=== PATIENT | male | born 1970 | race Hispanic/Latino ===

== ENCOUNTER 2017-09-29 09:23 | Emergency (ER) | payer OTHER ==
--- NOTE | 2017-09-29 10:37 | RAD REPORT ---
EXAM DESCRIPTION: RAD - C Spine Ap/Lat - 09/29/2017 10:17 am CLINICAL HISTORY: Neck pain status post injury FINDINGS: The alignment of the cervical spine is satisfactory. No fracture or dislocation is seen involving the cervical spine. . On the lateral view there is an oblique lucency overlying the body of the mandible. I suspect this re presents artifact. A fracture can also have this appearance and should be correlated clinically.
--- NOTE | 2017-09-29 10:39 | RAD REPORT ---
EXAM DESCRIPTION: RAD - Pelvis - 09/29/2017 10:17 am CLINICAL HISTORY: Pelvic pain status post injury FINDINGS: No fracture or dislocation is seen.
--- NOTE | 2017-09-29 10:42 | RAD REPORT ---
EXAM DESCRIPTION: RAD - Femur Right - 09/29/2017 10:17 am CLINICAL HISTORY: Right leg pain status post fall FINDINGS: No fracture is seen.
[2017-09-29] MEDS ORDERED: HYDROCODONE/APAP 10/325 TAB ONE (10:44)
--- NOTE | 2017-09-29 10:44 | RAD REPORT ---
EXAM DESCRIPTION: RAD - Lumbar Spine 3 Views - 09/29/2017 10:17 am CLINICAL HISTORY: Back pain FINDINGS: The alignment of the lumbar spine is satisfactory. No fracture or dislocation is seen. Mild to moderate spondylosis involves the mid and distal lumbar spine
--- NOTE | 2017-09-29 12:40 | RAD REPORT ---
EXAM DESCRIPTION: RAD - Mandible <4 Views - 09/29/2017 11:45 am CLINICAL HISTORY: Right mandibular pain status post fall FINDINGS: No fracture or dislocation is seen
--- NOTE | 2017-09-29 12:46 | ER ---
Nurse's Notes [facility] Name: Darío Pavon Age: 47 yrs Sex: Male : 1970 Arrival Date: 09/29/2017 Time: 09:26 Bed 7 Private MD: Diagnosis: Contusion of right hip;Fall on sidewalk Presentation: 09/29 09:26 Presenting complaint: EMS states: Right hip pain after mechanical fall from standing. hb Denies LOC. Care prior to arrival: None. Mechanism of Injury: Fall. Trauma event details: Injury occurred in the [facility], Injury occurred: at home. Injury occurred: September 29, 2017. 09:26 Method Of Arrival: EMS: [facility] 09:26 Acuity: RADHA 4 hb Trauma Activation: Not Applicable Physician: ED Physician; Name: ; Notified At: ; Arrived At: Physician: General Surgeon; Name: ; Notified At: ; Arrived At: Physician: Radiology; Name: ; Notified At: ; Arrived At: Physician: Respiratory; Name: ; Notified At: ; Arrived At: Physician: Lab; Name: ; Notified At: ; Arrived At: Historical: - Allergies: 10:18 No Known Allergies; hb - PSHx: 10:18 Back surgery; L knee; hb - Immunization history: Last tetanus immunization: - up to date. - Family history:: not pertinent. - Social history:: Smoking status: Patient/guardian denies using tobacco. - Hospitalizations: : No recent hospitalization is reported. Screenin:27 Abuse screen: Denies threats or abuse. Denies injuries from another. Tuberculosis hb screening: No symptoms or risk factors identified. 09:30 Nutritional screening: No deficits noted. Fall Risk None identified. hb Primary Survey: 09:28 A: Airway: patent, No supplemental oxygen in use on arrival. Breathing/Chest: hb Respiratory pattern: regular, Respiratory effort: spontaneous, unlabored, Breath sounds: clear, bilaterally. Chest inspection: symmetrical rise and fall of the chest. Circulation: Pulses: palpable . Skin color: pink, Skin temperature: warm, dry. Disability Alert. 10:27 Reassessment Airway Airway Patent Breathing/Chest Respiratory pattern Regular hb Respiratory effort Spontaneous Unlabored Chest inspection Symmetrical Circulation Color Golinda Temperature Warm Dry Disability Alert. 11:15 Reassessment Airway Airway Patent Breathing/Chest Respiratory pattern Regular hb Respiratory effort Spontaneous Unlabored Chest inspection Symmetrical Circulation Color Golinda Temperature Warm Dry Disability Alert. 12:10 Reassessment Airway Airway Patent Breathing/Chest Respiratory pattern Regular hb Respiratory effort Spontaneous Unlabored Chest inspection Symmetrical Circulation Color Golinda Temperature Warm Dry Disability Alert. 12:56 A: Airway: patent. Breathing/Chest: Respiratory pattern: regular, Respiratory effort: la1 spontaneous, unlabored. Disability Alert. Secondary Survey: 09:28 HEENT: No deficits noted. Gastrointestinal: No deficits noted. : No signs and/or hb symptoms were reported regarding the genitourinary system. Musculoskeletal: Circulation, motion, and sensation intact. Reports pain in right hip. Assessment: 09:32 General: Appears in no apparent distress. uncomfortable, Behavior is calm, cooperative. hb Pain: Pain currently is 6 out of 10 on a pain scale. Neuro: Level of Consciousness is awake, alert, obeys commands, Oriented to person, place, time, situation. EENT: No signs and/or symptoms were reported regarding the EENT system. Cardiovascular: Capillary refill < 3 seconds Patient's skin is warm and dry. Respiratory: Airway is patent Trachea midline Respiratory effort is even, unlabored, Respiratory pattern is regular, symmetrical, Breath sounds are clear bilaterally. GI: No signs and/or symptoms were reported involving the gastrointestinal system. : No signs and/or symptoms were reported regarding the genitourinary system. Derm: No signs and/or symptoms reported regarding the dermatologic system. Skin is intact, is healthy with good turgor. Musculoskeletal: Circulation, motion, and sensation intact. Reports pain in right hip. 10:27 Reassessment: Pt c/o headache 12/31. Dr. Winn notified, Clyde administered as ordered. Awaiting radiology results at this time. VSS. NAD. at bedside. 11:15 Reassessment: Patient appears in no apparent distress at this time. No changes from hb previously documented assessment. Patient and/or family updated on plan of care and expected duration. Pain level reassessed. Patient is alert, oriented x 3, equal unlabored respirations, skin warm/dry/pink. 12:10 Reassessment: Patient appears in no apparent distress at this time. No changes from hb previously documented assessment. Patient and/or family updated on plan of care and expected duration. Pain level reassessed. Patient is alert, oriented x 3, equal unlabored respirations, skin warm/dry/pink. Vital Signs: 09:27 BP 153 / 83; Pulse 82; Resp 16; Temp 98; Pulse Ox 100% on R/A; Pain 6/10; hb 10:28 BP 119 / 88; Pulse 80; Resp 16; Pulse Ox 100% on R/A; Pain 7/10; hb 11:00 BP 115 / 81; Pulse 71; Resp 15; Pulse Ox 100% on R/A; Pain 4/10; hb 12:00 BP 121 / 78; Pulse 74; Resp 17; Pulse Ox 100% on R/A; Pain 4/10; hb 13:02 BP 121 / 81; Pulse 76; Resp 16; Pulse Ox 100% on R/A; la1 Tahira Coma Score: 10:27 Eye Response: spontaneous(4). Verbal Response: oriented(5). Motor Response: obeys hb commands(6). Total: 15. Trauma Score (Adult): 09:27 Eye Response: spontaneous(1); Verbal Response: oriented(1); Motor Response: obeys hb commands(2); Systolic BP: > 89 mm Hg(4); Respiratory Rate: 10 to 29 per min(4); [place] Score: 15; Trauma Score: 12 10:27 Eye Response: spontaneous(1); Verbal Response: oriented(1); Motor Response: obeys hb commands(2); Systolic BP: > 89 mm Hg(4); Respiratory Rate: 10 to 29 per min(4); Tahira Score: 15; Trauma Score: 12 11:00 Eye Response: spontaneous(1); Verbal Response: oriented(1); Motor Response: obeys hb commands(2); Systolic BP: > 89 mm Hg(4); Respiratory Rate: 10 to 29 per min(4); [place] Score: 15; Trauma Score: 12 12:00 Eye Response: spontaneous(1); Verbal Response: oriented(1); Motor Response: obeys hb commands(2); Systolic BP: > 89 mm Hg(4); Respiratory Rate: 10 to 29 per min(4); Tahira Score: 15; Trauma Score: 12 13:02 Eye Response: spontaneous(1); Verbal Response: oriented(1); Motor Response: obeys la1 commands(2); Systolic BP: > 89 mm Hg(4); Respiratory Rate: 10 to 29 per min(4); [place] Score: 15; Trauma Score: 12 ED Course: 09:10 Patient has correct armband on for positive identification. Bed in low position. Call hb light in reach. Side rails up X 1. 09:26 Patient arrived in ED. hb 09:26 Santo Winn MD is Attending Physician. rn 09:27 Triage completed. hb 09:35 Patient maintains SpO2 saturation greater than 95% on room air. Thermoregulation: warm hb blanket given to patient. 09:40 Arm band placed on right wrist. hb 09:50 Yazmin Fine, RN is Primary Nurse. hb 10:17 XRAY C Spine Ap/lat In Process Unspecified. EDMS 10:17 XRAY Lumbar Spine (3 Views) In Process Unspecified. EDMS 10:17 XRAY Pelvis In Process Unspecified. EDMS 10:17 XRAY Femur RIGHT In Process Unspecified. EDMS 11:43 XRAY Mandible <4 Views In Process Unspecified. EDMS 13:02 No provider procedures requiring assistance completed. Patient did not have IV access la1 during this emergency room visit. Administered Medications: 10:26 Drug: Clyde 10 mg-325 mg 1 tabs Route: PO; hb 13:03 Follow up: Response: No adverse reaction; Pain is decreased la1 Intake: 10:27 PO: 200ml; Total: 200ml. hb Output: 10:27 Urine: 450ml (Voided); Total: 450ml. hb Outcome: 12:46 Discharge ordered by . rn 13:02 Discharged to home via wheelchair, with family. la1 13:02 Condition: stable 13:02 Patient's length of stay in the Emergency Department was greater than 2 hours. rad EXAMPatient's length of stay extended due to 13:03 Discharge instructions given to patient, Instructed on discharge instructions, follow la1 up and referral plans. Demonstrated understanding of instructions, follow-up care. 13:03 Patient left the ED. la1 Signatures: Dispatcher [employer] EDMS Santo Winn MD MD rn Attema, Lee, RN RN la1 Yazmin Fine RN RN hb Corrections: (The following items were deleted from the chart) 09:28 09:26 Acuity: RADHA 3 hb hb
--- NOTE | 2017-09-29 12:47 | EDPHYS ---
Physician Documentation [facility] Name: Darío Pavon Age: 47 yrs Sex: Male : 1970 Arrival Date: 09/29/2017 Time: 09:26 Bed 7 Private MD: ED Physician Santo Winn HPI: 09/29 10:03 This 47 yrs old Male presents to ER via EMS with complaints of Fall Injury. rn 10:03 Details of fall: The patient fell from an upright position, while walking. Onset: The rn symptoms/episode began/occurred just prior to arrival. Associated injuries: The patient sustained neck injury, injury to the low back. Severity of symptoms: At their worst the symptoms were mild, in the emergency department the symptoms are unchanged. The patient has not experienced similar symptoms in the past. Reports walking out of [employer], slipped, landed on right side, no LOC, not on blood thinners, no nausea/vomiting. Doesn't feel like anything broken. . Historical: - Allergies: 10:18 No Known Allergies; hb - PSHx: 10:18 Back surgery; L knee; hb - Immunization history: Last tetanus immunization: - up to date. - Family history:: not pertinent. - Social history:: Smoking status: Patient/guardian denies using tobacco. - Hospitalizations: : No recent hospitalization is reported. ROS: 10:03 Constitutional: Negative for fever, chills, and weight loss, Eyes: Negative for injury, rn pain, redness, and discharge, Neck: + pain Cardiovascular: Negative for chest pain, palpitations, and edema, Respiratory: Negative for shortness of breath, cough, wheezing, and pleuritic chest pain, Abdomen/GI: Negative for abdominal pain, nausea, vomiting, diarrhea, and constipation, Back: + for injury and pain, MS/Extremity: + right hip/buttock pain Skin: Negative for injury, rash, and discoloration, Neuro: Negative for headache, weakness, numbness, tingling, and seizure. Exam: 10:03 Constitutional: This is a well developed, well nourished patient who is awake, alert, rn and in no acute distress. Head/Face: Normocephalic, atraumatic. Eyes: Pupils equal round and reactive to light, extra-ocular motions intact. Lids and lashes normal. Conjunctiva and sclera are non-icteric and not injected. Cornea within normal limits. Periorbital areas with no swelling, redness, or edema. Neck: Trachea midline, no thyromegaly or masses palpated, and no cervical lymphadenopathy. Supple, full range of motion without nuchal rigidity, or vertebral point tenderness. No Meningismus. Cardiovascular: Regular rate and rhythm with a normal S1 and S2. No gallops, murmurs, or rubs. Normal PMI, no JVD. No pulse deficits. Respiratory: Lungs have equal breath sounds bilaterally, clear to auscultation and percussion. No rales, rhonchi or wheezes noted. No increased work of breathing, no retractions or nasal flaring. Abdomen/GI: Soft, non-tender, with normal bowel sounds. No distension or tympany. No guarding or rebound. No evidence of tenderness throughout. Back: No spinal tenderness. No costovertebral tenderness. Full range of motion. MS/ Extremity: Pulses equal, no cyanosis. Neurovascular intact. Full, normal range of motion. Equal circumference. + mild tenderness about right hip that wraps around to ischial region Neuro: Awake and alert, GCS 15, oriented to person, place, time, and situation. Cranial nerves II-XII grossly intact. Motor strength 5/5 in all extremities. Sensory grossly intact. Vital Signs: 09:27 BP 153 / 83; Pulse 82; Resp 16; Temp 98; Pulse Ox 100% on R/A; Pain 6/10; hb 10:28 BP 119 / 88; Pulse 80; Resp 16; Pulse Ox 100% on R/A; Pain 7/10; hb 11:00 BP 115 / 81; Pulse 71; Resp 15; Pulse Ox 100% on R/A; Pain 4/10; hb 12:00 BP 121 / 78; Pulse 74; Resp 17; Pulse Ox 100% on R/A; Pain 4/10; hb 13:02 BP 121 / 81; Pulse 76; Resp 16; Pulse Ox 100% on R/A; la1 Tahira Coma Score: 10:27 Eye Response: spontaneous(4). Verbal Response: oriented(5). Motor Response: obeys hb commands(6). Total: 15. Trauma Score (Adult): 09:27 Eye Response: spontaneous(1); Verbal Response: oriented(1); Motor Response: obeys hb commands(2); Systolic BP: > 89 mm Hg(4); Respiratory Rate: 10 to 29 per min(4); [place] Score: 15; Trauma Score: 12 10:27 Eye Response: spontaneous(1); Verbal Response: oriented(1); Motor Response: obeys hb commands(2); Systolic BP: > 89 mm Hg(4); Respiratory Rate: 10 to 29 per min(4); Tahira Score: 15; Trauma Score: 12 11:00 Eye Response: spontaneous(1); Verbal Response: oriented(1); Motor Response: obeys hb commands(2); Systolic BP: > 89 mm Hg(4); Respiratory Rate: 10 to 29 per min(4); Tahira Score: 15; Trauma Score: 12 12:00 Eye Response: spontaneous(1); Verbal Response: oriented(1); Motor Response: obeys hb commands(2); Systolic BP: > 89 mm Hg(4); Respiratory Rate: 10 to 29 per min(4); [place] Score: 15; Trauma Score: 12 13:02 Eye Response: spontaneous(1); Verbal Response: oriented(1); Motor Response: obeys la1 commands(2); Systolic BP: > 89 mm Hg(4); Respiratory Rate: 10 to 29 per min(4); Tahira Score: 15; Trauma Score: 12 MDM: 09:26 Patient medically screened. rn 12:40 Differential diagnosis: contusion, fracture, sprain, strain. Data reviewed: vital rn signs, nurses notes, radiologic studies, plain films. Counseling: I had a detailed discussion with the patient and/or guardian regarding: the historical points, exam findings, and any diagnostic results supporting the discharge/admit diagnosis, radiology results, the need for outpatient follow up, to return to the emergency department if symptoms worsen or persist or if there are any questions or concerns that arise at home. Special discussion: I discussed with the patient/guardian in detail that at this point there is no indication for admission to the hospital. It is understood, however, that if the symptoms persist or worsen the patient needs to return immediately for re-evaluation. 09/29 09:27 Order name: XRAY C Spine Ap/lat; Complete Time: 10:46 rn 09/29 09:27 Order name: XRAY Lumbar Spine (3 Views); Complete Time: 10:46 rn 04/08 09:27 Order name: XRAY Pelvis; Complete Time: 10:46 rn 09/29 09:27 Order name: XRAY Femur RIGHT; Complete Time: 10:46 rn 09/29 10:48 Order name: XRAY Mandible <4 Views; Complete Time: 12:40 rn Administered Medications: 10:26 Drug: Otho 10 mg-325 mg 1 tabs Route: PO; hb 13:03 Follow up: Response: No adverse reaction; Pain is decreased la1 Disposition: 09/29/17 12:46 Discharged to Home. Impression: Contusion of right hip, Fall on sidewalk. - Condition is Stable. - Discharge Instructions: Contusion. - Medication Reconciliation Form, Thank You Letter, Antibiotic Education, Prescription Opioid Use form. - Follow up: Private Physician; When: As needed; Reason: Recheck today's complaints, Re-evaluation by your physician. - Problem is new. - Symptoms have improved. Signatures: Dispatcher [employer] EDMS Santo Winn MD MD rn Attema, Lee, RN RN la1 Yazmin Fine RN RN hb
[2017-09-29 13:07] VITALS: TEMP 98; O2SAT 100
[2017-09-29 13:12] VITALS: BP 121/81
== END 2017-09-29 13:03 | disposition home or self-care (01) ==
LOC: ER 09:23
DX: S70.01XA Contusion of right hip, initial encounter (principal); W01.0XXA Fall on same level from slipping, tripping and stumbling without subsequent striking against object, initial encounter; Y93.01 Activity, walking, marching and hiking; Y92.511 Restaurant or cafe as the place of occurrence of the external cause
CPT/HCPCS: 70100; 72040; 72100; 72170; 99284

== ENCOUNTER 2020-09-27 09:12 | Day surgery (SDC) | payer OTHER ==
[2020-09-27 09:25] LABS: Hematocrit 48.1 % (39.6-49.0); MPV 9.8 fL (7.6-11.3)
[2020-09-27 09:48] LABS: Potassium 4.6 mmol/L (3.5-5.1)
[2020-09-27] MEDS ORDERED: Ringers Lactate 1,000 ML IV ONE (09:53)
[2020-09-27] MEDS ORDERED: CEFAZOLIN/SWI 1gm 1 GM/10 ML SYR ONE (09:53)
--- NOTE | 2020-09-27 10:05 | RAD REPORT ---
EXAM DESCRIPTION: Kelly Ureña (2 Views)09/27/2020 9:57 am CLINICAL HISTORY: Preop for abscess debridement COMPARISON: 2017 FINDINGS: The lungs appear clear of acute infiltrate. The heart is normal size IMPRESSION: No acute abnormalities displayed
[2020-09-27] MEDS ORDERED: propofoL 200 MG/20 ML VIAL IV ONE (10:28)
[2020-09-27] MEDS ORDERED: dexAMETHasone 10 MG/ML VIAL ONE (10:28)
[2020-09-27] MEDS ORDERED: KETOROLAC 30 MG/ML INJ ONE (10:28)
[2020-09-27] MEDS ORDERED: MIDAZOLAM HCL 2 MG/2 ML INJ ONE (10:28)
[2020-09-27] MEDS ORDERED: ONDANSETRON 4 MG/2 ML VIAL ONE (10:28)
[2020-09-27] MEDS ORDERED: FENTANYL CITR 100 MCG/2 ML ONE (10:28)
[2020-09-27] MEDS ORDERED: LIDOCAINE 2% MPF 5 ML VIAL ONE (10:28)
--- NOTE | 2020-09-27 11:24 | P.BOP ---
Preoperative diagnosis: necrotic wound with cellulitis abscess 5x5cm Postoperative diagnosis: same Primary procedure: Excisional debridement necrotic wound with abscess drainage 5x5cm Estimated blood loss: <10cc Specimen: necrotic tissue and culture Findings: necrotic wound Anesthesia: General Complications: None Drain(s): Other (wet to dry) Transferred to: Recovery Room Condition: Good
[2020-09-27] MEDS ORDERED: CODEINE 30MG/APAP 300MG TAB PO ONE (12:20)
[2020-09-27] MEDS ORDERED: CODEINE 30MG/APAP 300MG TAB ONE (12:38)
--- NOTE | 2020-09-27 12:44 | OP ---
Date of Procedure: 09/27/2020 Surgeon: Gopal Kidd MD Preoperative Diagnosis: Necrotic wound with cellulitis and abscess on the upper right thigh region l aterally. Postoperative Diagnosis: Necrotic wound with cellulitis and abscess on the upper right thigh region laterally. Procedure: Excisional debridement of necrotic wound with abscess drainage, 5 x 5 cm over the right l ateral thigh area. Estimated Blood Loss: Less than 10 mL. Specimen: Necrotic tissue and culture. Finding: Necrotic wound goes deep to about 1.5 cm. Multiple loculations. The entire area is about 5 x 5 cm. Complications: None. Indications: This is the case of a male, who comes to us with more than 2 weeks open wound area josephine lomeli. He believes it could be a trauma to that region, probably an insect bite. He has been on antibiotics by the primary doctor, but it does not improve, still cellulitic, still has fluctuance, s o we decided for exploration, wound debridement and drainage of an abscess. The benefits, alternativ es, and risks were fully explained, which include, but not limited to infection, bleeding, damage to adjacent structures, anesthesia complication, nonhealing wound, SD and even . He also understan ds this may not relieve the symptoms. He might need more than one surgical intervention. He also un derstands the need for wound care. He signed a consent. The area of concern was marked by me and th e patient in the holding room. Procedure In Detail: The patient was brought to the operating room, placed in supine position. Anes thesia was done without complication. The patient was placed in the right lateral position with prop er protection. The right thigh area was prepped and draped in a sterile fashion. A time-out was briana led. An incision was made to remove the necrotic tissue in that area. That led us into an abscess w ith multiple loculations. The devitalized tissue was sent to the pathologist. Loculations were expl ored, opened. Pus was removed, cultured. The area was irrigated. Hemostasis was obtained and the a joyce was packed with dry dressing. The patient tolerated the procedure well. The patient was sent to recovery in stable condition. YARITZA/CINDY Voice ID: [id number] Report ID: [id number]
--- NOTE | 2020-09-27 12:44 | DS ---
Diagnosis: Necrotic wound with cellulitis and abscess. Procedure: Excisional debridement of necrotic wound, subcutaneous with abscess drainage about 5 x 5. Disposition: Home. Plan: The patient will use Bactroban over the area with wet-to-dry. Follow up in my office in 1 wee k. The patient will be on antibiotics and pain medications. See orders for that. GAETANO Voice ID: [id number] Report ID: [id number]
[2020-09-27 12:55] VITALS: BP 120/71; O2SAT 99
[2020-09-27 13:25] VITALS: TEMP 97
--- NOTE | 2020-09-27 16:36 | EKG ---
Test Date: 2020-09-27 Test Time: 07:54:07 Aerospace Manager: BUSHRA MEASUREMENT RESULTS: Intervals: Rate: 81 OH: 152 QRSD: 112 QT: 344 QTc: 399 [place]: P: 18 OH: 152 QRS: 87 T: -34 INTERPRETIVE STATEMENTS: Sinus rhythm with premature supraventricular complexes Inferior infarct, age undetermined Abnormal ECG Compared to ECG 08/31/2016 08:59:34 Atrial premature complex(es) now present Myocardial infarct finding now present T-wave abnormality no longer present Electronically Signed On 09-27-20 16:36:00 CDT by Jose Stanley
== END 2020-09-27 13:20 | disposition home or self-care (01) ==
LOC: OR 09:12
PROVIDERS: ATTEND Surgery
PROC: 0JBL0ZZ Excision of Right Upper Leg Subcutaneous Tissue and Fascia, Open Approach (ICD-10-PCS; principal; 2020-09-27 09:45)
DX: L02.415 Cutaneous abscess of right lower limb (principal); L03.115 Cellulitis of right lower limb; I96 Gangrene, not elsewhere classified; Z20.822 Contact with and (suspected) exposure to COVID-19
CPT/HCPCS: 93005; 87070; 80048; 36415; 87205 ×2; 88304; 87075; 85027; 71046; 11042; U0003; J2704; J2250; J3010; J1100; J0690; J7120; J2405; 87077; 87186

== ENCOUNTER 2022-02-28 08:22 | Emergency (ER) | payer OTHER ==
--- OUTSIDE RECORDS SUMMARY | 2022-02-28 08:25 | XMS REPORT | Continuity of Care Document ---
:1970 Author Organization [facility] t Address [address] [place] [address] Care Team Providers Name Role Phone Abraham Acosta Attending Clinician Unavailable Abraham Acosta Attending Clinician Unavailable Abraham Acosta Attending Clinician Unavailable Abraham Acosta Admitting Clinician Unavailable Payers Payer Name Policy Type Policy Number Effective Date Expiration Date S ource Problems This patient has no known problems. Allergies, Adverse Reactions, Alerts Allergy Allergy Status Severity Reaction(s) Onset Inactive Treating Comm ents Source Name Type Date Date Clinician No Known DA Active U 2019-06 [facility] Drug 2-22 Allergie 00:00: s 00 Unable Drug Active [facility] No Known Drug Active [facility] Medications This patient has no known medications. Vital Signs Vital Name Observation Time Observation Value Comments Source Body Mass Index 2020-09-22 10:39:23 33.7 Height 2020-09-22 10:39:23 170.18\S\67 Pulse Rate 2020-09-22 10:39:23 72 /min Respiratory Rate 2020-09-22 10:39:23 16 /min Temperature 2020-09-22 10:39:23 36.1\S\97.0 Weight 2020-09-22 10:39:23 06297.359\S\3440 Weight Measurement Method 2020-09-22 10:39:23 Standing Scale 02 Sat by Pulse Oximetry 2020-09-22 10:39:23 100 /min 02 Sat by Pulse Oximetry 2020-07-29 09:34:41 100 /min Body Mass Index 2020-07-29 09:34:41 33.7 Height 2020-07-29 09:34:41 170.18\S\67 Pulse Rate 2020-07-29 09:34:41 72 /min Respiratory Rate 2020-07-29 09:34:41 16 /min Temperature 2020-07-29 09:34:41 36.1\S\97.0 Weight 2020-07-29 09:34:41 77206.359\S\3440 Weight Measurement Method 2020-07-29 09:34:41 Standing Scale 02 Sat by Pulse Oximetry 2020-06-20 16:01:57 100 /min Body Mass Index 2020-06-20 16:01:57 33.7 Height 2020-06-20 16:01:57 170.18\S\67 Pulse Rate 2020-06-20 16:01:57 72 /min Respiratory Rate 2020-06-20 16:01:57 16 /min Temperature 2020-06-20 16:01:57 36.1\S\97.0 Weight 2020-06-20 16:01:57 90936.359\S\3440 Weight Measurement Method 2020-06-20 16:01:57 Standing Scale 02 Sat by Pulse Oximetry 2020-06-20 15:58:20 100 /min Body Mass Index 2020-06-20 15:58:20 33.7 Height 2020-06-20 15:58:20 170.18\S\67 Pulse Rate 2020-06-20 15:58:20 72 /min Respiratory Rate 2020-06-20 15:58:20 16 /min Temperature 2020-06-20 15:58:20 36.1\S\97.0 Weight 2020-06-20 15:58:20 42614.359\S\3440 Weight Measurement Method 2020-06-20 15:58:20 Standing Scale 02 Sat by Pulse Oximetry 2020-06-20 13:16:45 100 /min Body Mass Index 2020-06-20 13:16:45 33.7 Height 2020-06-20 13:16:45 170.18\S\67 Pulse Rate 2020-06-20 13:16:45 72 /min Respiratory Rate 2020-06-20 13:16:45 16 /min Temperature 2020-06-20 13:16:45 36.1\S\97.0 Weight 2020-06-20 13:16:45 01433.359\S\3440 Weight Measurement Method 2020-06-20 13:16:45 Standing Scale 02 Sat by Pulse Oximetry 2020-06-15 17:10:15 100 /min Body Mass Index 2020-06-15 17:10:15 33.7 Height 2020-06-15 17:10:15 170.18\S\67 Pulse Rate 2020-06-15 17:10:15 72 /min Respiratory Rate 2020-06-15 17:10:15 16 /min Temperature 2020-06-15 17:10:15 36.1\S\97.0 Weight 2020-06-15 17:10:15 50750.359\S\3440 Weight Measurement Method 2020-06-15 17:10:15 Standing Scale 02 Sat by Pulse Oximetry 2020-06-15 17:10:14 100 /min Body Mass Index 2020-06-15 17:10:14 33.7 Height 2020-06-15 17:10:14 170.18\S\67 Pulse Rate 2020-06-15 17:10:14 72 /min Respiratory Rate 2020-06-15 17:10:14 16 /min Temperature 2020-06-15 17:10:14 36.1\S\97.0 Weight 2020-06-15 17:10:14 92722.359\S\3440 Weight Measurement Method 2020-06-15 17:10:14 Standing Scale 02 Sat by Pulse Oximetry 2020-06-15 13:22:39 97 /min Body Mass Index 2020-06-15 13:22:39 33.7 Height 2020-06-15 13:22:39 170.18\S\67 Pulse Rate 2020-06-15 13:22:39 78 /min Respiratory Rate 2020-06-15 13:22:39 16 /min Temperature 2020-06-15 13:22:39 37.1\S\98.8 Weight 2020-06-15 13:22:39 11707.359\S\3440 Weight Measurement Method 2020-06-15 13:22:39 Standing Scale WEIGHT 2020-06-15 13:21:00 97.785506 kg HEIGHT 2020-06-15 13:21:00 170.18 cm Procedures This patient has no known procedures. Encounters Start End Encounter Admission Attending Care Care Encounter Source Date/Time Date/Time Type Type Clinicians Facility Department ID 2020-01-15 Inpatient Abraham Acosta [facility] [id number] [facility] 12:26:00 Abraham Acosta [facility] 2020-06-15 2020-06-15 Outpatient Dave [facility] [id number] [facility] 14:30:00 14:30:00 Abraham Results This patient has no known results.
[2022-02-28] MEDS ORDERED: IBUPROFEN 200 MG TAB PO ONE (08:56)
[2022-02-28] MEDS ORDERED: IBUPROFEN 400 MG TAB ONE (08:56)
--- NOTE | 2022-02-28 10:01 | RAD REPORT ---
EXAM DESCRIPTION: RAD - Knee Right 3 View - 02/28/2022 9:37 am CLINICAL HISTORY: PAIN COMPARISON: No comparisons FINDINGS/IMPRESSION: No acute fracture. No malalignment. Trace patellofemoral compartment spurring.
--- NOTE | 2022-02-28 11:00 | ER ---
Nurse's Notes [facility] Name: Darío Pavon Age: 51 yrs Sex: Male : 1970 Arrival Date: 02/28/2022 Time: 08:25 Bed Waiting Private MD: Ronny Figueroa Diagnosis: Pain in knee Presentation: 02/28 08:36 Chief complaint: Patient states: I hae been having some pain in my right knee that bm7 started a few days ago. Coronavirus screen: At this time, the client does not indicate any symptoms associated with coronavirus-19. Ebola Screen: No symptoms or risks identified at this time. Initial Sepsis Screen: Does the patient meet any 2 criteria? No. Patient's initial sepsis screen is negative. Does the patient have a suspected source of infection? No. Patient's initial sepsis screen is negative. Risk Assessment: Do you want to hurt yourself or someone else? Patient reports no desire to harm self or others. Onset of symptoms was February 27, 2022. 08:36 Method Of Arrival: Ambulatory 7 08:36 Acuity: RADHA 4 bm7 08:42 Note ERP AT BEDSIDE TO ASSESS. bm7 Triage Assessment: 08:37 General: Appears in no apparent distress. uncomfortable, Behavior is calm, cooperative, bm7 appropriate for age. Pain: Complains of pain in right knee. EENT: No deficits noted. No signs and/or symptoms were reported regarding the EENT system. Neuro: No deficits noted. Cardiovascular: No deficits noted. Respiratory: No deficits noted. GI: No deficits noted. No signs and/or symptoms were reported involving the gastrointestinal system. : No deficits noted. No signs and/or symptoms were reported regarding the genitourinary system. Derm: No deficits noted. No signs and/or symptoms reported regarding the dermatologic system. Musculoskeletal: Reports pain in right knee. Historical: - Allergies: 08:37 No Known Allergies; bm7 - Home Meds: 08:37 metoprolol tartrate 50 mg Oral tab 1 tab 2 times per day [Active]; fenofibrate 54 mg bm7 oral tab 1 tab once daily [Active]; lisinopril 10 mg Oral tab 1 tab once daily [Active]; aspirin 81 mg Oral TbEC 1 tab once daily [Active]; - PSHx: 08:37 eye; bm7 - Immunization history:: Adult Immunizations up to date, Client reports receiving the 2nd dose of the Covid vaccine, Client reports receiving the 1st dose of the Covid vaccine. - Social history:: Smoking status: Patient denies any tobacco usage or history of. Screenin:32 Abuse screen: Denies threats or abuse. Nutritional screening: No deficits noted. bm7 Tuberculosis screening: No symptoms or risk factors identified. Fall Risk None identified. Assessment: 10:32 Reassessment: No changes from previously documented assessment. bm7 Vital Signs: 08:37 BP 133 / 100; Pulse 88; Resp 16; Temp 99.3(TE); Pulse Ox 100% on R/A; Weight 99.79 kg bm7 (R); Height 5 ft. 6 in. (167.64 cm); Pain 10/10; 08:37 Body Mass Index 35.51 (99.79 kg, 167.64 cm) bm7 ED Course: 08:25 Patient arrived in ED. mr 08:25 Ronny Figueroa MD is Private Physician. mr 08:29 Chucky Springer DO is Attending Physician. ms3 08:37 Triage completed. bm7 08:37 Arm band placed on right wrist. bm7 09:39 Knee Right 3 View XRAY In Process Unspecified. EDMS 10:32 No apparent distress. Awaiting disposition. bm7 10:32 Patient has correct armband on for positive identification. bm7 10:32 No provider procedures requiring assistance completed. Patient did not have IV access bm7 during this emergency room visit. 10:59 Sheng Hunt MD is Referral Physician. ms3 11:43 Tabby Bruce, RN is Primary Nurse. iw Administered Medications: 09:14 Drug: Ibuprofen 600 mg Route: PO; bm7 09:45 Follow up: Response: No adverse reaction iw Medication: 10:32 VIS not applicable for this client. bm7 Outcome: 10:59 Discharge ordered by . ms3 11:42 Discharged to home ambulatory, with crutches, with family. iw 11:42 Condition: good 11:42 Discharge instructions given to patient, family, Instructed on discharge instructions, follow up and referral plans. Demonstrated understanding of instructions, follow-up care, medications, Prescriptions given X 1. 11:43 Patient left the ED. iw Signatures: Dispatcher [employer] EDGA Josefina Robins Teo, Tabby, RN RN iw Chucky Springer DO DO ms3 Lynn Dodge, IRWIN RN bm7
--- NOTE | 2022-02-28 11:00 | EDPHYS ---
Physician Documentation [facility] Name: Darío Pavon Age: 51 yrs Sex: Male : 1970 Arrival Date: 02/28/2022 Time: 08:25 Bed Waiting Private MD: Ronny Figueroa ED Physician Chucky Springer HPI: 02/28 09:13 This 51 yrs old Male presents to ER via Ambulatory with complaints of Knee ms3 Pain. 09:13 51-year-old male with past medical history of hypertension, hyperlipidemia, atrial ms3 fibrillation presents for right knee pain that is been ongoing for 2 days and intermittent. Patient states the pain became worse this morning. Patient states the pain is located in his lateral knee. Pain at its greatest intensity was a 9/10 and is currently a 4/10 while sitting. Patient denies fevers, chills, nausea, vomiting.. Historical: - Allergies: 08:37 No Known Allergies; bm7 - Home Meds: 08:37 metoprolol tartrate 50 mg Oral tab 1 tab 2 times per day [Active]; fenofibrate 54 mg bm7 oral tab 1 tab once daily [Active]; lisinopril 10 mg Oral tab 1 tab once daily [Active]; aspirin 81 mg Oral TbEC 1 tab once daily [Active]; - PSHx: 08:37 eye; bm7 - Immunization history:: Adult Immunizations up to date, Client reports receiving the 2nd dose of the Covid vaccine, Client reports receiving the 1st dose of the Covid vaccine. - Social history:: Smoking status: Patient denies any tobacco usage or history of. ROS: 09:13 Constitutional: Negative for fever, and chills. Eyes: Negative for injury, pain, ms3 redness, and discharge, Neck: Negative for injury, pain, and swelling, Cardiovascular: Negative for chest pain, and palpitations. Respiratory: Negative for shortness of breath, cough, wheezing, and pleuritic chest pain, Abdomen/GI: Negative for abdominal pain, nausea, vomiting, diarrhea, and constipation, Neuro: Negative for headache, weakness, numbness, tingling. 09:13 MS/extremity: Positive for pain, tenderness, of the right knee. 09:13 All other systems are negative. Exam: 09:13 Constitutional: This is a well developed, well nourished patient who is awake, alert, ms3 and in no acute distress. Head/Face: Normocephalic, atraumatic. Neck: Trachea midline, no cervical lymphadenopathy. Supple, full range of motion without nuchal rigidity, or vertebral point tenderness. No Meningismus. Chest/axilla: Normal chest wall appearance and motion. Nontender with no deformity. Cardiovascular: Regular rate and rhythm with a normal S1 and S2. No gallops, murmurs, or rubs. Normal PMI, no JVD. No pulse deficits. Respiratory: Lungs have equal breath sounds bilaterally, clear to auscultation and percussion. No rales, rhonchi or wheezes noted. No increased work of breathing, no retractions or nasal flaring. Abdomen/GI: Soft, non-tender, with normal bowel sounds. No distension or tympany. No guarding or rebound. No evidence of tenderness throughout. Skin: Warm, dry with normal turgor. Normal color with no rashes, no lesions, and no evidence of cellulitis. Psych: Awake, alert, with orientation to person, place and time. Behavior, mood, and affect are within normal limits. 09:13 Musculoskeletal/extremity: Extremities: noted in the right knee: pain, tenderness. Vital Signs: 08:37 BP 133 / 100; Pulse 88; Resp 16; Temp 99.3(TE); Pulse Ox 100% on R/A; Weight 99.79 kg bm7 (R); Height 5 ft. 6 in. (167.64 cm); Pain 10/10; 08:37 Body Mass Index 35.51 (99.79 kg, 167.64 cm) bm7 MDM: 08:45 Patient medically screened. ms3 09:13 Differential diagnosis: tendonitis, OA vs LCL tear. ms3 10:59 Data reviewed: vital signs, nurses notes, radiologic studies, and as a result, I will ms3 discharge patient. Counseling: I had a detailed discussion with the patient and/or guardian regarding: the historical points, exam findings, and any diagnostic results supporting the discharge/admit diagnosis, radiology results, the need for outpatient follow up, to return to the emergency department if symptoms worsen or persist or if there are any questions or concerns that arise at home. ED course: Discussed necessity of Ortho follow up with patient. Patient understands/ agrees with plan. All questions answered. Return precautions discussed to include worsening sx or any other concerns.. 02/28 09:13 Order name: Knee Right 3 View XRAY; Complete Time: 10:40 ms3 Administered Medications: 09:14 Drug: Ibuprofen 600 mg Route: PO; bm7 09:45 Follow up: Response: No adverse reaction iw Disposition Summary: 02/28/22 10:59 Discharge Ordered Location: Home ms3 Condition: Stable ms3 Diagnosis - Pain in knee ms3 Followup: ms3 - With: Sheng Hunt MD - When: 2 - 3 days - Reason: Recheck today's complaints Discharge Instructions: - Discharge Summary Sheet ms3 - Acute Knee Pain, Adult ms3 Forms: - Medication Reconciliation Form ms3 - Thank You Letter ms3 - Work release form bd - Antibiotic Education ms3 - Prescription Opioid Use ms3 Prescriptions: - Ibuprofen 600 mg Oral Tablet - take 1 tablet by ORAL route every 6 hours As needed take with food; 30 tablet; ms3 Refills: 0, Product Selection Permitted Signatures: Dispatcher [employer] Chucky Mejia DO DO ms3 Lynn Dodge, RN RN bm7 Tabby Bruce RN iw
[2022-02-28 12:07] VITALS: BP 133/100; TEMP 99.3; O2SAT 100
== END 2022-02-28 11:43 | disposition home or self-care (01) ==
LOC: ER 08:22
DX: M25.561 Pain in right knee (principal)
CPT/HCPCS: 99283